=== PATIENT | female | born 1985 | race Caucasian/White ===

== ENCOUNTER 2018-08-31 00:54 | Emergency (ER) | payer BC ==
[~2018-08-31] VITALS: Ht 160 cm; Wt 91.2 kg
--- NOTE | 2018-08-31 00:55 | NUR ---
Patient to ER bed 6 to gown for evaluation. Side rails up. Report given to Lyn BELLO.
[2018-08-31] MEDS ORDERED: NACL 0.9% 1,000 ML IV ONE (00:58)
[2018-08-31 01:00] VITALS: BP_SYST 157
--- NOTE | 2018-08-31 01:10 | NUR ---
0110 - ER at bedside examining patient.
--- NOTE | 2018-08-31 01:15 | NUR ---
0115 - Assumed care of pt. Pt states tonight after intercourse w/ , began having vaginal bleeding. pt states it was "a lot" of bright red blood. denies cramping at this time. Pt states she has had vaginal bleeding early in in both of her previous pregnancies. Pt is resting in bed, no distress. VSS. Labs drawn, awaiting US. Will continue to monitor.
[2018-08-31 01:45] LABS: CALCIUM 8.9 mg/dL (8.4-11.0); CREATININE 0.69 mg/dL (0.55-1.30); POTASSIUM 3.5 mmol/L (3.5-5.1)
[2018-08-31 02:11] LABS: ALBUMIN 3.3 g/dL (3.4-4.8); TOTAL BILIRUBIN 0.2 mg/dL (0.0-1.0)
--- NOTE | 2018-08-31 02:42 | NUR ---
0242 - Patient given written and verbal discharge instructions and verbalizes understanding. ER MD discussed with patient the results and treatment provided. Patient in stable condition. ID arm band removed. Patient educated on pain management and to follow up with PMD. Pain Scale 0. Opportunity for questions provided and answered. Medication side effect fact sheet provided.
[2018-08-31 02:43] VITALS: BP_SYST 157
[2018-08-31 02:55] LABS: BASOPHILS % (AUTO) 0.2 % (0.0-2.0); EOSINOPHILS # (AUTO) 0.1 K/uL (0.0-0.4); HEMATOCRIT 43.2 % (36-48); HEMOGLOBIN 14.2 g/dL (12.0-16.0); LYMPHOCYTES # (AUTO) 4.3 K/uL (1.0-5.5); LYMPHOCYTES % (AUTO) 32.5 % (20.5-51.5); MEAN CORPUSCULAR HEMOGLOBIN 29 pg (27-31); MEAN CORPUSCULAR HGB CONC 33 % (32-36); MEAN CORPUSCULAR VOLUME 89 fL (79.0-98.0); MONOCYTES % (AUTO) 7.6 % (1.7-9.3); NEUTROPHILS # (AUTO) 7.8 K/uL (1.8-7.7); NEUTROPHILS % (AUTO) 58.7 % (40.0-70.0); PLATELET COUNT (AUTO) 263 K/uL (130-430); RED BLOOD CELL COUNT(AUTO) 4.87 MIL/uL (4.2-6.2); WHITE BLOOD COUNT (AUTO) 13.3 K/uL (4.8-10.8)
== END 2018-08-31 02:42 | disposition home or self-care (01) ==
LOC: SED 00:54
DX: O46.91 Antepartum hemorrhage, unspecified, first trimester (principal); E03.9 Hypothyroidism, unspecified; F43.10 Post-traumatic stress disorder, unspecified; Z88.1 Allergy status to other antibiotic agents; Z88.8 Allergy status to other drugs, medicaments and biological substances; Z91.040 Latex allergy status; Z3A.09 9 weeks gestation of pregnancy
CPT/HCPCS: 36415; 76801; 76817; 80053; 84702-TC; 85025; 86901; 99284